=== PATIENT | female | born 1945 | race African-American/Black ===

== ENCOUNTER 2016-10-14 12:53 | Emergency (ER) | payer OTHER ==
[2016-10-14 13:10] VITALS: BP 144/73; PULSE 64; TEMP 98; BMI 35.6
--- NOTE | 2016-10-14 14:04 | PDOC ---
History of Present Illness - General History Source: Patient Exam Limitations: No Limitations - History of Present Illness Initial Comments: 10/14/16 14:07 The patient is a 70 year old female who presents to the ED with s/p fall several days ago. Patient reports she was waking from a carpet floor onto a hardwood floor when her sneaker got caught and she fell forward. She states her left knee hit the hard floor first, followed by her arms. She reports bilateral arm soreness secondary to fall but states her right arm progressively worsened last night and she developed pain. Patient reports right arm pain at the top of her right arm radiating downward. She states she is unable to lift her right arm over her head. Patient also reports pain to her left knee. She state she took Aleve with slight relief of present symptoms. Denies focal numbness, weakness, or tingling. Denies loss of consciousness or head injury. Denies any other symptoms. Past medical history: hypertension, hyperlipidemia Past surgical hx: Right sided knee replacement. <Sreedhar Garcia - Last Filed: 10/14/16 14:35> <Mary Vital - Last Filed: 10/14/16 15:40> - General Chief Complaint: Pain Stated Complaint: PAIN Time Seen by Provider: 10/14/16 13:23 Past History <Sreedhar Garcia - Last Filed: 10/14/16 14:35> - Past Medical History HTN: Yes Hypercholesterolemia: Yes Suicide Attempt (Hx): No - Surgical History Orthopedic Surgery: Yes (rt knee sx) Other Surgical History: 10/14/16 14:25 - Psycho/Social/Smoking Cessation Hx Anxiety: No Suicidal Ideation: No Smoking History: Former smoker Have you smoked in the past 12 months: No If you are a former smoker, when did you quit?: 16yrs Information on smoking cessation initiated: No Hx Alcohol Use: No Drug/Substance Use Hx: No Substance Use Type: None Patient Lives Alone: No <Mary Vital - Last Filed: 10/14/16 15:40> - Past Medical History Allergies/Adverse Reactions: Allergies Allergy/AdvReac Type Severity Reaction Status Date / Time lisinopril Allergy Severe Verified 10/14/16 13:09 Home Medications: Ambulatory Orders Metoprolol Tartrate 75 mg PO DAILY 10/23/14 Oxycodone HCl/Acetaminophen [Percocet 5/325 -] 1 tab PO Q4H #20 tablet 10/23/14 Rosuvastatin Calcium [Crestor] 20 mg PO DAILY 10/23/14 Trauma Specific PMHX - Complaint Specific PMHX Back Injury: No <Mary Vital - Last Filed: 10/14/16 15:40> Review of Systems - Review of Systems Musculoskeletal: Yes: See HPI, Other (arm pain, knee pain s/p fall ) All Other Systems: Reviewed and Negative <Sreedhar Garcia - Last Filed: 10/14/16 14:35> - Review of Systems Able to Perform ROS?: No Is the patient limited Albanian proficient: No Constitutional: No: Symptoms Reported Musculoskeletal: Yes: Joint Pain (rt shoulder and left knee) Integumentary: No: Symptoms Reported Neurological: No: Numbness, Paresthesia, Weakness <Mary Vital - Last Filed: 10/14/16 15:40> *Physical Exam - Vital Signs Last Vital Signs Temp Pulse Resp BP Pulse Ox 98 F 64 16 144/73 99 10/14/16 13:00 10/14/16 13:00 10/14/16 13:00 10/14/16 13:00 10/14/16 13:00 - Physical Exam Comments: 10/14/16 14:08 GENERAL: Well-appearing, well-nourished. No apparent distress. HEENT: no scapular tenderness. Normocephalic, atraumatic. PERRL, EOM intact. CARDIOVASCULAR: Normal S1, S2. Regular rate and rhythm. PULMONARY: Clear to auscultation bilaterally. ABDOMEN: Soft, non-distended, non-tender. EXTREMITIES: + No meniscus or lateral ligament tenderness, mild crepitus upon movement. tenderness to anterior proximal aspect of left patella , no effusion edema or erythema. no sensory periosteal distal of injury. Positive pedal pulses. Normal ROM in all four extremities. No gross deformities. MUSCULOSKELETAL: No limited ROM or tenderness to pelvis or hip. No spinal midline tenderness. SKIN: Warm, dry. No rash NEUROLOGICAL: No focal neurological deficits. Normal gait. <Sreedhar Garcia - Last Filed: 10/14/16 14:35> - Vital Signs Last Vital Signs Temp Pulse Resp BP Pulse Ox 98 F 64 16 144/73 99 10/14/16 13:00 10/14/16 13:00 10/14/16 13:00 10/14/16 13:00 10/14/16 13:00 - Physical Exam General Appearance: Yes: Nourished, Appropriately Dressed. No: Apparent Distress Neck: positive: Supple. negative: Tender, Decreased range of motion Vascular Pulses: Doralis-Pedis (L): 2+ Musculoskeletal: negative: Vertebral Tenderness Extremity: positive: Normal Capillary Refill, Normal Inspection, Tender (over ac joint). negative: Normal Range of Motion (unable to perform lateral raise of the right upper extremity greater than 90 degrees), Swelling, Erythema Integumentary: positive: Normal Color, Warm, Moist Neurologic: positive: Motor Strength 5/5 (ambulatory, 5+ shoulder shrug and straight leg raise) <Mary Vital - Last Filed: 10/14/16 15:40> Medical Decision Making - Medical Decision Making 10/14/16 14:28 Patient was reviewed by me with dictation performed by the medical conceirge. Patient status post mechanical fall and presents to the ED with complaints of left knee and right shoulder pain today. Patient on exam had point tenderness to the proximal aspect anteriorly of left patella and right ac joint. Patient concerning for patellar fracture versus contusion. Patient also ordered for x- ray of the knee and shoulder. Patient offered analgesics but refused this time. 10/14/16 15:37 x-ray of the shoulder shows mild osteopenia and degenerative changes of the ac joint including a small inferior medial acromial spur. the left knee shows osteopenia and lateral spurring. there is a mild lateral subluxation of the patella. patient will be given an Thanh wrap and told to follow -up with her orthopedist at [facility]. <Mary Vital - Last Filed: 10/14/16 15:40> *DC/Admit/Observation/Transfer - Attestations Scribe Attestion: 10/14/16 14:08 Documentation prepared by Sreedhar Garcia, acting as hospitalist medical director for Emergency Dept,Physician, <Sreedhar Garcia - Last Filed: 10/14/16 14:35> <Mary Vital - Last Filed: 10/14/16 15:40> Diagnosis at time of Disposition: Subluxation of left patella Qualifiers: Encounter type: initial encounter Qualified Code(s): S83.002A - Unspecified subluxation of left patella, initial encounter - Discharge Dispostion Disposition: HOME Condition at time of disposition: Good - Referrals Referrals: STAFF,NOT ON [Primary Care Provider] - - Patient Instructions Printed Discharge Instructions: DI for Knee Pain Additional Instructions: Please use Thanh wrap during the day and remove at night. You may take Tylenol for discomfort. I do want to follow-up with her orthopedist.
== END 2016-10-14 15:45 | disposition home or self-care (01) ==
LOC: JER 12:53 → JERFT 12:53
DX: S83.002A Unspecified subluxation of left patella, initial encounter (principal); W01.0XXA Fall on same level from slipping, tripping and stumbling without subsequent striking against object, initial encounter; Y93.01 Activity, walking, marching and hiking; Y92.038 Other place in apartment as the place of occurrence of the external cause; Y99.8 Other external cause status; M85.862 Other specified disorders of bone density and structure, left lower leg; M85.811 Other specified disorders of bone density and structure, right shoulder
CPT/HCPCS: 73030-TC-RT; 73562-TC-LT; 99281-25

== ENCOUNTER 2019-01-11 21:19 | Emergency (ER) | payer OTHER ==
--- NOTE | 2019-01-11 21:36 | PDOC ---
Rapid Medical Evaluation Medical Evaluation: Allergies Allergy/AdvReac Type Severity Reaction Status Date / Time lisinopril Allergy Severe Verified 10/14/16 13:09 01/11/19 21:33 I have performed a brief in-person evaluation of this patient. The patient presents with a chief complaint of: Lower back pain radiating to groin and thighs x 6 days. Hard to ambulate 2/2 pain. H/o spinal stenosis, chronic LBP, arthritis, RA, R TKR, afib on AC, HTN, HLD. Took her muscle relaxant this am w/ no relief. No acute sensory changes and no acute sxs, n/v /f/c Pertinent physical exam findings: Stable and in NAD, sitting in W/C I have ordered the following:nothing The patient will proceed to the ED for further evaluation Discharge Disposition - Diagnosis Low back pain Qualifiers: Chronicity: chronic Back pain laterality: unspecified Sciatica presence: without sciatica Qualified Code(s): M54.5 - Low back pain - Referrals - Patient Instructions - Post Discharge Activity
[2019-01-11 21:43] VITALS: TEMP 98.1; BMI 41.5
[2019-01-11] MEDS ORDERED: LIDOCAINE PATCH REMOVAL MC SCH (22:00)
[2019-01-11] MEDS ORDERED: LIDOCAINE 5% TOPICAL PATCH TP ONE (23:20)
[2019-01-11] MEDS ORDERED: ACETAMINOPHEN 500 MG TABLET (FP) PO ONE (23:20)
--- NOTE | 2019-01-11 23:26 | PDOC ---
Documentation entered by Rosario Machuca SCRIBE, acting as scribe for Francisca Abebe MD. Francisca Abebe MD: This documentation has been prepared by the Brigette ortiz Adrianna, SCRIBE, under my direction and personally reviewed by me in its entirety. I confirm that the documentation accurately reflects all work, treatment, procedures, and medical decision making performed by me. Attending Attestation - Resident Resident Name: Edgardo Corral - ED Attending Attestation I have performed the following: I have examined & evaluated the patient, The case was reviewed & discussed with the resident, I agree w/resident's findings & plan, Exceptions are as noted - HPI HPI: The patient is a 73 year old female, with a significant PMH of chronic low back pain, spinal stenosis, RA, Afib (on Eliquis), HTN, and HLD, who presents to the ED for evaluation of low back pain for one week. Patient endorses right-sided low back pain that radiates to her right thigh and right groin subsequently to her trying new exercises. She reports some relief with muscle relaxer, but denies any trauma to the areas. Allergies: Lisinopril, aspirin, hydrochlorotiazide Surgical History: None reported Social History: Denies EtOH, tobacco, or illicit drug use PCP: Dr. Conway - Physicial Exam PE: 01/12/19 00:36 Well-nourished well-developed 73-year-old female with complaint of right-sided low back pain radiating towards her groin down her her thigh Head normocephalic atraumatic Neck supple Lungs are clear to auscultation bilaterally CVS regular rate and rhythm S1-S2 Abdomen soft Skin warm and dry Extremities motor strength 5 out of 5 bilaterally, sensation intact No saddle anesthesia No numbness or tingling in her extremities Neuro alert and oriented x3, ambulatory, deep tendon reflexes +2. Toes are downgoing, no clonus - Medical Decision Making 01/12/19 00:38 Patient given pain medicines and will follow-up with her primary physician
--- NOTE | 2019-01-11 23:44 | PDOC ---
History of Present Illness - General Chief Complaint: Back Pain Stated Complaint: PAIN Time Seen by Provider: 01/11/19 21:33 History Source: Patient, Family (Daughters present at bedside.) Exam Limitations: No Limitations - History of Present Illness Initial Comments: HPI: 73 y/o female presenting to [facility] ER complaining of right lower back pain with radiation to the top of the right thigh and into right groin for the past week. Started after trying new exercises. Pt has a h/o of chronic pain in the area and a h/o of lower back spinal stenosis. Attempted relief w/ prescribe muscle relaxant earlier today with minimal relief. Denies urinary retention, bowel incontinence, saddle anesthesia, or numbness/weakness in lower extremities. Denies trauma to the area. Medical Hx: H/o spinal stenosis w/ MRI 1 year ago and surgery suggested by neurosurgeon - Chronic LBP - Rheumatoid arthritis - R TKR - Afib on Eliquis - HTN - HLD Review of Systems: In addition to that documented in the HPI above, the additional ROS was obtained : Constitutional- Denies fevers or diaphoresis Head- Denies vision changes ENMT- Denies sore throat CV- Denies chest pain Resp- Denies SOB GI- Denies vomiting or diarrhea - Denies painful urination MSK- Denies recent trauma Skin- Denies new rashes Neuro- Denies new numbness or tingling or weakness Endocrine- Denies polyuria Heme- Denies bleeding or bruising Physical Examination: Constitutional- Well-developed, well-nourished adult female in no acute distress but mild obvious discomfort. Found semi-fowlers on hospital bed. Answered all questions appropriately and completely. Head- Normocephalic. No obvious external signs of trauma. Cardiovascular / Chest- Irregularly irregular rate and rhythm. No murmur, rubs, clicks, or gallops. Peripheral pulses- radial pulses full. Respiratory- Breathing unlabored. Equal chest rise and fall. Clear to auscultation bilaterally. No stridor, no wheezing, no rhonchi. Gastrointestinal- abdomen is soft, non-tender, non-distended. Neuro- Alert and oriented x4. Moving all four extremities spontaneously. Sensation to all four extremities intact. Proximal and distal strength 5/5. Cold Type Artist strength 5/5 - equal and symmetric. Plantar flexion and dorsiflexion 5/5. No nuchal rigidity. Straight leg test negative; no pain with leg above 90 degrees. MSK: Diffuse tenderness to right gluteal region. No midline lumbar spinal tenderness. Extremity is warm and well perfused. Skin- Warm, dry, and intact. - No R or L CVA tenderness. Psych- Affect- appropriate. Mood- normal. Speech was non-labored, non- pressured. MDM: *Reviewed vital signs, nursing notes, and prior visit documentation (if available). 73 y/o female presenting with worsening right lower back pain for the past week in setting of known spinal stenosis and chronic pain. No red flags identified on history. Afebrile. Vitals unremarkable for hypotension or tachycardia. Physical exam as described above. Ordered Percocet and Lidoderm patch for symptom relief. [employer] reviewed. No entries for [facility]. Discussed physical exam findings with pt and daughters. Answered all questions. Provided return precautions. Pt and daughters expressed verbal understanding and agreement with plan to discharge home with outpatient follow up. Prescribed short course Percocet. Encouraged f/u with neurosurgeon. Provided referral. Edgardo Corral M.D., PGY2 Emergency Medicine Resident 01/12/19 00:27 Past History - Past Medical History Allergies/Adverse Reactions: Allergies Allergy/AdvReac Type Severity Reaction Status Date / Time lisinopril Allergy Severe Verified 10/14/16 13:09 aspirin Allergy Verified 01/11/19 21:36 hydrochlorothiazide Allergy Verified 01/11/19 21:36 Home Medications: Ambulatory Orders Metoprolol Tartrate 75 mg PO DAILY 10/23/14 Oxycodone HCl/Acetaminophen [Percocet 5/325 -] 1 tab PO Q4H #20 tablet 10/23/14 Rosuvastatin Calcium [Crestor] 20 mg PO DAILY 10/23/14 Oxycodone HCl/Acetaminophen [Percocet 5-325 mg Tablet] 1 tab PO Q4H PRN #4 tablet MDD 2 01/12/19 COPD: No HTN: Yes Hypercholesterolemia: Yes Other medical history: Reumatoid arthritis - Surgical History Orthopedic Surgery: Yes (rt knee sx) - Psycho Social/Smoking Cessation Hx Smoking History: Never smoked Have you smoked in the past 12 months: No If you are a former smoker, when did you quit?: 16yrs Hx Alcohol Use: No Drug/Substance Use Hx: No Substance Use Type: None *Physical Exam - Vital Signs Last Vital Signs Temp Pulse Resp BP Pulse Ox 98.1 F 56 L 20 140/68 100 01/11/19 21:36 01/11/19 21:36 01/11/19 21:36 01/11/19 21:36 01/11/19 21:36 Discharge - Discharge Information Problems reviewed: Yes Clinical Impression/Diagnosis: Low back pain Qualifiers: Chronicity: chronic Back pain laterality: unspecified Sciatica presence: without sciatica Qualified Code(s): M54.5 - Low back pain Condition: Good Disposition: HOME - Admission No - Additional Discharge Information Prescriptions: Oxycodone HCl/Acetaminophen [Percocet 5-325 mg Tablet] 1 tab PO Q4H PRN #4 tablet MDD 2 PRN Reason: Back Pain - Follow up/Referral Referrals: Gino Conway [Primary Care Provider] - Yash Swenson MD, FAANS [Staff Physician] - - Patient Discharge Instructions Patient Printed Discharge Instructions: DI for Low Back Pain Additional Instructions: You were seen today for right lower back pain for the past week. Your pain is likely worsening of your chronic pain. I have sent a prescription for Percocet to your pharmacy. Take as directed on the package insert. Do not exceed the recommended dosage. Do not use this medication while driving or using heavy machinery as it may cause drowsiness. Follow up with your primary care doctor within the next 2-3 days. You will need to call to make an appointment. The number is included in this packet. You can also follow up with a neurosurgeon. I have entered a referral for you to see Dr. Swenson. You will need to call to make an appointment. The number is included in this packet. Go to the nearest emergency department if your condition worsens or you feel like you need additional emergency evaluation. Print Language: ESTONIAN - Post Discharge Activity
[2019-01-11] MEDS ORDERED: ACETAMINOPHEN 325 MG TABLET (FP) ONE (23:58)
[2019-01-11] MEDS ORDERED: LIDOCAINE 5% TOPICAL PATCH ONE (23:59)
[2019-01-12 01:45] VITALS: BP 133/63; PULSE 58
== END 2019-01-12 00:27 | disposition home or self-care (01) ==
LOC: JER 21:19
DX: M54.5 Low back pain (principal); G89.29 Other chronic pain; M48.00 Spinal stenosis, site unspecified; I48.91 Unspecified atrial fibrillation; Z79.01 Long term (current) use of anticoagulants; I10 Essential (primary) hypertension; E78.5 Hyperlipidemia, unspecified; M06.9 Rheumatoid arthritis, unspecified; Z88.8 Allergy status to other drugs, medicaments and biological substances; Z88.6 Allergy status to analgesic agent
CPT/HCPCS: 99281-25

== ENCOUNTER 2021-03-29 16:55 | Emergency (ER) | payer OTHER ==
[2021-03-29 17:16] VITALS: PULSE 69; TEMP 98.8; BMI 35.0
[2021-03-29] MEDS ORDERED: DIPHTH,PERTUSS(ACELL),TET 0.5 ML DISP.SYRIN IM ONE ×2 (17:31→17:33)
[2021-03-29] MEDS ORDERED: SULFAMETHOXAZOLE/TRIMETHOPRIM 800MG/160MG D.S. TABLET PO ONE (18:57)
[2021-03-29] MEDS ORDERED: SULFAMETHOXAZOLE/TRIMETHOPRIM 800MG/160MG D.S. TABLET ONE (19:33)
[2021-03-29 19:46] VITALS: BP 145/69
== END 2021-03-29 19:40 | disposition home or self-care (01) ==
LOC: FER 16:55
PROC: 3E0234Z Introduction of Serum, Toxoid and Vaccine into Muscle, Percutaneous Approach (ICD-10-PCS; principal; 2021-03-29)
DX: M25.561 Pain in right knee (principal)
CPT/HCPCS: 73562-TC-LT-FY; 73562-TC-RT-FY; 73590-TC-RT-FY; 90471; 90715; 99284-25

== ENCOUNTER 2021-04-08 18:51 | Emergency (ER) | payer OTHER ==
[2021-04-08 19:09] VITALS: BP 159/74; PULSE 77; TEMP 99.1; BMI 34.7
== END 2021-04-08 21:49 | disposition home or self-care (01) ==
LOC: FER 18:51 → SUPCPDRO 18:51 → FER 21:49
DX: S81.011A Laceration without foreign body, right knee, initial encounter (principal); T45.515A Adverse effect of anticoagulants, initial encounter; Y99.9 Unspecified external cause status
CPT/HCPCS: 93971-TC; 99284-25

== ENCOUNTER 2021-05-07 15:08 | Inpatient (IN) | payer OTHER ==
[2021-05-07] MEDS ORDERED: CEFTRIAXONE 1,000 MG in DEXTROSE 5%-WATER - 50 ML IVPB ONE (15:53)
[2021-05-07] MEDS ORDERED: SODIUM CHLORIDE 1,000 ML IV STA (15:53)
[2021-05-07] MEDS ORDERED: ACETAMINOPHEN 1000 MG/100 ML BAG IVPB ONE (16:39)
[2021-05-07] MEDS ORDERED: cefTRIAXone SODIUM 1 GM VIAL ONE (16:41)
[2021-05-07] MEDS ORDERED: ACETAMINOPHEN INJECTION 100 ML IVPB ONE (16:42)
[2021-05-07 16:51] LABS: ALBUMIN 2.7 g/dl (3.4-5.0); BILIRUBIN,TOTAL 0.9 mg/dl (0.2-1)
[2021-05-07 17:10] LABS: MAGNESIUM 1.9 mg/dL (1.8-2.4)
[2021-05-07 18:05] LABS: ACTIVATED PTT 46.8 SECONDS (25.2-36.5); INR 2.22 (0.83-1.09); PROTHROMBIN TIME (PATIENT) 25.7 SEC (9.7-13.0)
[2021-05-07] MEDS: KCL 10 MEQ IVPB 10 MEQ/100 ML INFUS.BAG IVPB SCH ×2 (18:20→19:42)
[2021-05-07] MEDS ORDERED: AZITHROMYCIN IVPB 500 MG in DEXTROSE 5%-WATER - 250 ML IVPB ONE (18:31)
[2021-05-07] MEDS ORDERED: POTASSIUM CHLORIDE ORAL LIQUID 20 MEQ/15 ML PO ONE (18:40)
[2021-05-07] MEDS ORDERED: POTASSIUM CHLORIDE TABS 20 MEQ TABLET.ER (FP) PO ONE ×3 (18:41→18:54)
[2021-05-07 18:43] LABS: HEMATOCRIT 36.7 % (32.4-45.2); HEMOGLOBIN 12.1 GM/dL (10.7-15.3); MCH 27.3 pg (25.7-33.7); MCHC 32.9 g/dl (32.0-36.0); MEAN PLT VOLUME 9.7 fl (7.5-11.1); PLATELET COUNT 182 10^3/uL (134-434); RBC 4.42 M/mm3 (3.60-5.2); RDW 16.6 % (11.6-15.6); WHITE BLOOD COUNT 11.6 K/mm3 (4.0-10.0)
[2021-05-07] MEDS ORDERED: AZITHROMYCIN 500 MG VIAL IVPB ONE (18:43)
[2021-05-07 18:52] LABS: VENOUS BASE EXCESS -1.1 mmol/L (-2-2); VENOUS PCO2 33.3 mmHg (38-52); VENOUS PH 7.443 (7.310-7.410)
[2021-05-07 19:28] LABS: ANISOCYTOSIS 0; MACROCYTOSIS 0; PLATELET ESTIMATE NORMAL
[2021-05-07] MEDS ORDERED: ACETAMINOPHEN 325 MG TABLET (FP) PO PRN (22:16)
[2021-05-07] MEDS ORDERED: POLYETHYLENE GLYCOL (HEALTHYLAX) 3350 17 GM PACKET PO PRN (22:16)
[2021-05-07] MEDS: APIXABAN 2.5 MG TABLET PO SCH (23:29)
[2021-05-08] MEDS ORDERED: SODIUM CHLORIDE 500 ML IV STA (00:02)
[2021-05-08] MEDS ORDERED: guaiFENesin 200 MG/10 ML 10 ML UNIT-DOSE CUPS PO PRN (00:04)
[2021-05-08] MEDS ORDERED: MELATONIN 1 MG TABLET PO PRN (00:05)
[2021-05-08] MEDS ORDERED: DEXTROSE 5%-NORMAL SALINE 1,000 ML IV SCH ×2 (00:15→10:21)
[2021-05-08 01:38] LABS: EPI CELLS 13 /uL (0-25.1); HYALINE CASTS 1 /uL (0-3.1); URINE APPEARANCE CLEAR; URINE BACTERIA 1 /uL (0-1359); URINE BILIRUBIN NEGATIVE (NEGATIVE); URINE COLOR YELLOW; URINE GLUCOSE (UA) NEGATIVE (NEGATIVE); URINE KETONE NEGATIVE (NEGATIVE); URINE LEUK ESTERASE NEGATIVE (NEGATIVE); URINE NITRITE NEGATIVE (NEGATIVE); URINE PROTEIN 1+ (NEGATIVE); URINE UROBILINOGEN 0.2 mg/dL (0.2-1.0); URINE WBC 19 /uL (0-25.8)
[2021-05-08 02:14] LABS: URINE RBC 2 /uL (0-23.9)
[2021-05-08] MEDS ORDERED: TRIMETHOBENZAMIDE HCL 300 MG CAPSULE PO PRN (06:39)
[2021-05-08 08:04] LABS: ALBUMIN 2.2 g/dl (3.4-5.0); BILIRUBIN,TOTAL 0.5 mg/dl (0.2-1); CALCIUM 7.8 mg/dl (8.5-10)
[2021-05-08] MEDS ORDERED: cefTRIAXone SODIUM 1 GM VIAL ONE (09:23)
[2021-05-08] MEDS ORDERED: DEXTROSE 5%-WATER - 50 ML IVPB ONE (09:23)
[2021-05-08 09:25] LABS: BASO % 0.1 % (0-2.0); EOS % 0.1 % (0-4.5); HEMATOCRIT 35.4 % (32.4-45.2); HEMOGLOBIN 11.7 GM/dL (10.7-15.3); LYMPH % 2.4 % (8-40); MCH 27.5 pg (25.7-33.7); MCHC 32.9 g/dl (32.0-36.0); MEAN CELL VOLUME 83.5 fl (80-96); MEAN PLT VOLUME 9.5 fl (7.5-11.1); MONO % 8.1 % (3.8-10.2); NEUT % 89.3 % (42.8-82.8); PLATELET COUNT 190 10^3/uL (134-434); RBC 4.24 M/mm3 (3.60-5.2); RDW 17.6 % (11.6-15.6)
[2021-05-08] MEDS: CEFTRIAXONE 1 GM in DEXTROSE 5%-WATER - 50 ML IVPB SCH (09:31)
[2021-05-08] MEDS: POTASSIUM CHLORIDE TABS 20 MEQ TABLET.ER (FP) PO SCH ×2 (09:31→15:00)
[2021-05-08] MEDS: APIXABAN 2.5 MG TABLET PO SCH ×2 (09:31→21:53)
[2021-05-08] MEDS ORDERED: FUROSEMIDE 40 MG/4 ML INJECTABLE VIAL IVPUSH ONE (11:08)
[2021-05-08] MEDS ORDERED: AZITHROMYCIN IVPB 500 MG/250 ML BAG IVPB SCH (20:00)
[2021-05-08] MEDS: ROSUVASTATIN CA 20 MG TABLET PO SCH (21:52)
[2021-05-08] MEDS: metoPROLOL SUCCINATE 25 MG TAB.SR.24H (FP) PO SCH (21:53)
[2021-05-09 07:55] LABS: ALBUMIN 2.1 g/dl (3.4-5.0); BILIRUBIN,TOTAL 0.4 mg/dl (0.2-1); CALCIUM 8.3 mg/dl (8.5-10); CREATININE 1.9 mg/dl (0.55-1.3); MAGNESIUM 1.8 mg/dL (1.8-2.4); TOT PROT 4.8 g/dl (6.4-8.2)
[2021-05-09 08:28] LABS: BASO % 0.2 % (0-2.0); EOS % 1.3 % (0-4.5); HEMATOCRIT 34.7 % (32.4-45.2); HEMOGLOBIN 11.2 GM/dL (10.7-15.3); LYMPH % 5.3 % (8-40); MCH 26.6 pg (25.7-33.7); MCHC 32.3 g/dl (32.0-36.0); MEAN CELL VOLUME 82.4 fl (80-96); MEAN PLT VOLUME 9.7 fl (7.5-11.1); MONO % 12.2 % (3.8-10.2); PLATELET COUNT 221 10^3/uL (134-434); RBC 4.21 M/mm3 (3.60-5.2); WHITE BLOOD COUNT 8.5 K/mm3 (4.0-10.0)
[2021-05-09] MEDS ORDERED: D5-1/2NS+40 MEQ KCL - 40 MEQ/1,000 ML INFUS.BAG IV SCH (09:00)
[2021-05-09] MEDS ORDERED: POTASSIUM CHLORIDE TABS 20 MEQ TABLET.ER (FP) PO SCH (09:00)
[2021-05-09 09:08] LABS: SARS-CoV-2 NAA Not Detected (Not Detected)
[2021-05-09] MEDS ORDERED: cefTRIAXone SODIUM 1 GM VIAL ONE (09:54)
[2021-05-09] MEDS ORDERED: DEXTROSE 5%-WATER - 50 ML IVPB ONE (09:55)
[2021-05-09] MEDS ORDERED: POTASSIUM CHLORIDE ORAL LIQUID 20 MEQ/15 ML PO SCH (10:00)
[2021-05-09] MEDS: POTASSIUM CHLORIDE ORAL LIQUID 20 MEQ/15 ML PO SCH ×2 (10:07→16:26)
[2021-05-09] MEDS: APIXABAN 2.5 MG TABLET PO SCH ×2 (10:07→21:07)
[2021-05-09] MEDS: CEFTRIAXONE 1 GM in DEXTROSE 5%-WATER - 50 ML IVPB SCH (10:08)
[2021-05-09 13:58] LABS: EPITHELIAL CELLS MANY /hpf
[2021-05-09 15:03] LABS: ALBUMIN 2.4 g/dl (3.4-5.0); BILIRUBIN,TOTAL 0.4 mg/dl (0.2-1); CALCIUM 8.5 mg/dl (8.5-10); CREATININE 1.9 mg/dl (0.55-1.3); MAGNESIUM 1.8 mg/dL (1.8-2.4); TOT PROT 5.5 g/dl (6.4-8.2)
[2021-05-09 17:18] VITALS: BMI 35.3
[2021-05-09] MEDS: AZITHROMYCIN IVPB 500 MG/250 ML BAG IVPB SCH (20:57)
[2021-05-09] MEDS: ROSUVASTATIN CA 20 MG TABLET PO SCH (21:06)
[2021-05-09] MEDS: metoPROLOL SUCCINATE 25 MG TAB.SR.24H (FP) PO SCH (21:08)
[2021-05-09] MEDS: ALBUTEROL SO4 HFA INHALER IH PRN (21:14)
[2021-05-10] MEDS: ALBUTEROL SO4 HFA INHALER IH PRN ×2 (06:48→21:36)
[2021-05-10 09:05] LABS: ALBUMIN 2.4 g/dl (3.4-5.0); BILIRUBIN,TOTAL 0.4 mg/dl (0.2-1); CALCIUM 8.6 mg/dl (8.5-10); CREATININE 1.7 mg/dl (0.55-1.3); MAGNESIUM 1.7 mg/dL (1.8-2.4); TOT PROT 5.9 g/dl (6.4-8.2)
[2021-05-10] MEDS ORDERED: DEXTROSE 5%-WATER - 50 ML IVPB ONE (09:38)
[2021-05-10] MEDS ORDERED: cefTRIAXone SODIUM 1 GM VIAL ONE (09:38)
[2021-05-10] MEDS: APIXABAN 2.5 MG TABLET PO SCH ×2 (09:40→21:30)
[2021-05-10] MEDS: CEFTRIAXONE 1 GM in DEXTROSE 5%-WATER - 50 ML IVPB SCH (09:40)
[2021-05-10 09:55] LABS: BASO % 0.4 % (0-2.0); EOS % 2.6 % (0-4.5); HEMATOCRIT 36.1 % (32.4-45.2); LYMPH % 9.8 % (8-40); MCH 27.8 pg (25.7-33.7); MCHC 33.2 g/dl (32.0-36.0); MEAN CELL VOLUME 83.7 fl (80-96); MEAN PLT VOLUME 10.1 fl (7.5-11.1); MONO % 10.6 % (3.8-10.2); NEUT % 76.6 % (42.8-82.8); PLATELET COUNT 272 10^3/uL (134-434); RBC 4.32 M/mm3 (3.60-5.2); RDW 17.6 % (11.6-15.6); WHITE BLOOD COUNT 8.5 K/mm3 (4.0-10.0)
[2021-05-10] MEDS: AZITHROMYCIN IVPB 500 MG/250 ML BAG IVPB SCH (21:29)
[2021-05-10] MEDS: ROSUVASTATIN CA 20 MG TABLET PO SCH (21:30)
[2021-05-10] MEDS: metoPROLOL SUCCINATE 25 MG TAB.SR.24H (FP) PO SCH (21:30)
[2021-05-11] MEDS ORDERED: DEXTROSE 5%-WATER - 50 ML IVPB ONE (09:00)
[2021-05-11] MEDS ORDERED: cefTRIAXone SODIUM 1 GM VIAL ONE (09:00)
[2021-05-11] MEDS: CEFTRIAXONE 1 GM in DEXTROSE 5%-WATER - 50 ML IVPB SCH (09:04)
[2021-05-11] MEDS: APIXABAN 2.5 MG TABLET PO SCH (09:04)
[2021-05-11 09:10] VITALS: BP 130/66; PULSE 95; TEMP 98.1
== END 2021-05-11 12:05 | disposition home or self-care (01) | DRG 871 ==
LOC: FER 15:08 → FM/S 20:44
PROVIDERS: ADMIT Internal Medicine; ATTEND Nurse Practitioner Family
DX: A41.89 Other specified sepsis (principal); J18.9 Pneumonia, unspecified organism; N17.9 Acute kidney failure, unspecified; I24.8 Other forms of acute ischemic heart disease; M62.82 Rhabdomyolysis; I10 Essential (primary) hypertension; I48.0 Paroxysmal atrial fibrillation; E78.5 Hyperlipidemia, unspecified; M06.9 Rheumatoid arthritis, unspecified; R50.9 Fever, unspecified; E11.9 Type 2 diabetes mellitus without complications; E87.6 Hypokalemia; R00.0 Tachycardia, unspecified; D72.829 Elevated white blood cell count, unspecified; R82.81 Pyuria; R80.9 Proteinuria, unspecified
CPT/HCPCS: 36415; 71045-TC-FY; 71250-TC; 74176-TC; 80053; 81003; 81015; 82550; 82553; 82570; 82803; 83605; 83735; 83880; 84156; 84484; 85025; 85610; 85730; 86850; 86900; 86901; 87040; 87086; 87324; 87426; 87449; 87804; 87899; 93005; 93010; 93306-TC; 94761; 97116-GP; 97161-GP; 99291; C9803; U0003; U0005

== ENCOUNTER 2023-04-27 14:43 | Emergency (ER) | payer OTHER ==
[2023-04-27 15:16] VITALS: BP 139/72; PULSE 76; RESP 20; TEMP 98; BMI 32.9
[2023-04-27 17:29] LABS: HEMATOCRIT 44.8 % (32.4-45.2); HEMOGLOBIN 14.5 G/dL (10.7-15.3); MCH 27.8 pg (25.7-33.7); MCHC 32.3 g/dl (32.0-36.0); MEAN CELL VOLUME 86.2 fl (80-96); MEAN PLT VOLUME 10.8 fl (7.5-11.1); PLATELET COUNT 212.7 10^3/uL (134-434); RDW 15.8 % (11.6-15.6)
[2023-04-27 17:33] LABS: INR 1.3 (0.83-1.09)
[2023-04-27 17:36] LABS: ACTIVATED PTT 42.4 SECONDS (25.2-36.5)
[2023-04-27 17:44] LABS: BILIRUBIN,TOTAL 1.2 mg/dl (0.2-1); CALCIUM 9.5 mg/dl (8.5-10.1); CREATININE 1.1 mg/dl (0.6-1.3); TOT PROT 6.5 g/dl (6.4-8.2)
[2023-04-27 17:46] LABS: POTASSIUM 5.7 mmol/L (3.5-5.1)
[2023-04-27 18:32] LABS: PLATELET ESTIMATE ADEQUATE
[2023-04-27 19:28] LABS: POTASSIUM 4.3 mmol/L (3.5-5.1)
[2023-04-27 20:20] LABS: CALCIUM 9.5 mg/dl (8.5-10.1); CREATININE 1.1 mg/dl (0.6-1.3); POTASSIUM 4.4 mmol/L (3.5-5.1)
== END 2023-04-27 20:28 | disposition home or self-care (01) ==
LOC: FER 14:43
DX: S46.912A Strain of unspecified muscle, fascia and tendon at shoulder and upper arm level, left arm, initial encounter (principal); S80.12XA Contusion of left lower leg, initial encounter; W01.0XXA Fall on same level from slipping, tripping and stumbling without subsequent striking against object, initial encounter; Y92.828 Other wilderness area as the place of occurrence of the external cause
CPT/HCPCS: 36415; 70450-TC; 73030-TC-LT-FY; 80048; 80053; 80061; 81003; 82550; 83036; 84132; 84484; 85025; 85610; 85730; 93005; 93970-TC; 99285-25

== ENCOUNTER 2023-05-26 15:20 | Inpatient (IN) | payer OTHER ==
[2023-05-26] MEDS ORDERED: ACETAMINOPHEN INJECTION 100 ML IVPB ONE (18:54)
[2023-05-26 18:58] LABS: EOS % 1.4 % (0-4.5); HEMATOCRIT 42.6 % (32.4-45.2); HEMOGLOBIN 13.6 GM/dL (10.7-15.3); LYMPH % 16.7 % (8-40); MCH 26.8 pg (25.7-33.7); MEAN PLT VOLUME 9.4 fl (7.5-11.1); MONO % 6.9 % (3.8-10.2); PLATELET COUNT 314 10^3/uL (134-434); RBC 5.07 M/mm3 (3.60-5.2); RDW 15.7 % (11.6-15.6); WHITE BLOOD COUNT 9.1 K/mm3 (4.0-10.0)
[2023-05-26] MEDS: ACETAMINOPHEN 1000 MG/100 ML BAG IVPB ONE (19:02)
[2023-05-26 19:03] LABS: INR 1.43 (0.83-1.09); PROTHROMBIN TIME (PATIENT) 16.5 SEC (9.7-13.0)
[2023-05-26 19:06] LABS: ACTIVATED PTT 34.6 SECONDS (25.2-36.5)
[2023-05-26] MEDS ORDERED: VANCOMYCIN 1 GRAM (PRE-DOCKED) 1,000 MG/250 ML BAG IVPB ONE (19:15)
[2023-05-26] MEDS ORDERED: MEROPENEM 1 GM VIAL (RESTRICTED TO ID) IVPB ONE (19:15)
[2023-05-26 19:19] LABS: ALBUMIN 3.4 g/dl (3.4-5.0); CALCIUM 9.8 mg/dL (8.5-10.1)
[2023-05-26 19:20] LABS: BLOOD UREA NITROGEN 49.5 mg/dL (7-18)
[2023-05-26 19:23] LABS: CREATININE 1.1 mg/dL (0.55-1.3)
[2023-05-26 19:24] LABS: BILIRUBIN,TOTAL 0.7 mg/dL (0.2-1); TOT PROT 6.9 g/dl (6.4-8.2)
[2023-05-26] MEDS: MEROPENEM 1 GM in DEXTROSE 5%-WATER 100 ML IVPB ONE (19:28)
[2023-05-26] MEDS: VANCOMYCIN 1,000 MG in DEXTROSE 5%-WATER - 250 ML IVPB ONE (20:27)
[2023-05-26] MEDS ORDERED: ACETAMINOPHEN 1000 MG/100 ML BAG IVPB PRN (22:11)
[2023-05-27] MEDS ORDERED: CYCLOBENZAPRINE HCL 5 MG TABLET PO PRN (00:22)
[2023-05-27] MEDS: SODIUM CHLORIDE 1,000 ML IV SCH (00:31)
[2023-05-27] MEDS ORDERED: MEROPENEM 1 GM VIAL (RESTRICTED TO ID) IVPB ONE (03:32)
[2023-05-27] MEDS: MEROPENEM 500 MG in DEXTROSE 5%-WATER 100 ML IVPB SCH (03:42)
[2023-05-27 08:52] LABS: BASO % 0.5 % (0-2.0); EOS % 1.7 % (0-4.5); HEMATOCRIT 41.2 % (32.4-45.2); HEMOGLOBIN 13.3 GM/dL (10.7-15.3); LYMPH % 17.5 % (8-40); MCH 26.9 pg (25.7-33.7); MCHC 32.3 g/dl (32.0-36.0); MEAN CELL VOLUME 83.5 fl (80-96); MONO % 7.5 % (3.8-10.2); NEUT % 72.8 % (42.8-82.8); PLATELET COUNT 307 10^3/uL (134-434); RBC 4.94 M/mm3 (3.60-5.2); RDW 15.6 % (11.6-15.6); WHITE BLOOD COUNT 7.5 K/mm3 (4.0-10.0)
[2023-05-27 09:22] VITALS: BMI 32.1
[2023-05-27 09:24] LABS: CALCIUM 9.5 mg/dL (8.5-10.1)
[2023-05-27 09:25] LABS: ALBUMIN 3.1 g/dl (3.4-5.0); BLOOD UREA NITROGEN 45.5 mg/dL (7-18); MAGNESIUM 2.1 mg/dL (1.8-2.4)
[2023-05-27 09:27] LABS: PHOSPHOROUS 3.2 mg/dL (2.5-4.9)
[2023-05-27 09:29] LABS: BILIRUBIN,TOTAL 0.9 mg/dL (0.2-1); TOT PROT 6.3 g/dl (6.4-8.2)
[2023-05-27] MEDS: VANCOMYCIN/WATER 1250 MG 1,250 MG/250 ML BAG IVPB SCH (09:55)
[2023-05-27] MEDS: SPIRONOLACTONE 25 MG TABLET PO SCH (09:55)
[2023-05-27] MEDS: APIXABAN 5 MG TABLET PO SCH (09:56)
[2023-05-27] MEDS: MEROPENEM 1 GM in DEXTROSE 5%-WATER 100 ML IVPB SCH (18:30)
[2023-05-27] MEDS: VANCOMYCIN/WATER FOR INJ (PEG) 1,000 MG/200 ML BAG IVPB SCH (20:44)
[2023-05-27] MEDS: ROSUVASTATIN CA 20 MG TABLET PO SCH (21:37)
[2023-05-27] MEDS: metoPROLOL SUCCINATE 25 MG TAB.SR.24H (FP) PO SCH (21:37)
[2023-05-28] MEDS ORDERED: MEROPENEM 500 MG in DEXTROSE 5%-WATER 100 ML IVPB SCH (02:00)
[2023-05-28] MEDS ORDERED: VANCOMYCIN/WATER 1250 MG 1,250 MG/250 ML BAG IVPB SCH (08:00)
[2023-05-29 09:06] LABS: BASO % 0.4 % (0-2.0); EOS % 2.1 % (0-4.5); HEMATOCRIT 42.4 % (32.4-45.2); HEMOGLOBIN 13.5 GM/dL (10.7-15.3); LYMPH % 28.6 % (8-40); MCH 26.7 pg (25.7-33.7); MCHC 31.7 g/dl (32.0-36.0); MEAN CELL VOLUME 84.4 fl (80-96); MEAN PLT VOLUME 9.8 fl (7.5-11.1); MONO % 8.1 % (3.8-10.2); NEUT % 60.8 % (42.8-82.8); PLATELET COUNT 305 10^3/uL (134-434); RBC 5.03 M/mm3 (3.60-5.2); RDW 16.1 % (11.6-15.6); WHITE BLOOD COUNT 8.2 K/mm3 (4.0-10.0)
[2023-05-29 09:47] LABS: POTASSIUM 4.2 mmol/L (3.5-5.1)
[2023-05-29 09:57] LABS: ALBUMIN 3.2 g/dl (3.4-5.0); BLOOD UREA NITROGEN 27.8 mg/dL (7-18); CALCIUM 9.5 mg/dL (8.5-10.1); CREATININE 0.9 mg/dL (0.55-1.3); MAGNESIUM 2.1 mg/dL (1.8-2.4)
[2023-05-29 09:59] LABS: BILIRUBIN,TOTAL 0.7 mg/dL (0.2-1); TOT PROT 6.4 g/dl (6.4-8.2)
[2023-05-29] MEDS: AMINO ACIDS/PROTEIN HYDROLYS 30 ML LIQUID.PKT PO SCH (10:48)
[2023-05-29] MEDS: MULTIVITAMINS THER W-MINERALS COMBO TABLET (FP) PO SCH (10:48)
[2023-05-29] MEDS: LOSARTAN POTASSIUM 25 MG TABLET PO SCH (12:57)
[2023-05-29] MEDS: LOSARTAN POTASSIUM 50 MG TABLET PO SCH (13:01)
[2023-05-29] MEDS: GABAPENTIN 300 MG CAPSULE PO SCH (13:03)
[2023-05-29] MEDS: ACETAMINOPHEN 500 MG TABLET (FP) PO PRN (13:05)
[2023-05-29] MEDS: BENICAR 20 MG PO SCH (15:30)
[2023-05-30] MEDS: PANTOPRAZOLE 40 MG TABLET PO SCH (10:53)
[2023-05-30] MEDS: AMINO ACIDS/PROTEIN HYDROLYS 30 ML LIQUID.PKT PO SCH (17:40)
[2023-05-30] MEDS: AMOX TR/POT CLAV 875MG/125MG TABLETS (FP) PO SCH (17:40)
[2023-05-31 15:23] VITALS: RESP 18
[2023-06-01 15:27] VITALS: BP 129/89; PULSE 90; TEMP 97.9
[2023-06-01] MEDS: LACTOBACILLUS ACIDOPHILUS 1 TABLET PO SCH (16:51)
== END 2023-06-01 18:04 | DRG 603 ==
LOC: JER 15:20 → JERBED 16:08 → J8W 05-27 05:33
PROVIDERS: ADMIT Internal Medicine; ATTEND Nurse Practitioner Family
PROC: 02HV33Z Insertion of Infusion Device into Superior Vena Cava, Percutaneous Approach (ICD-10-PCS; principal; 2023-06-01)
PROC: B548ZZA Ultrasonography of Superior Vena Cava, Guidance (ICD-10-PCS; 2023-06-01)
DX: L03.115 Cellulitis of right lower limb (principal); I48.91 Unspecified atrial fibrillation; Z79.01 Long term (current) use of anticoagulants; I10 Essential (primary) hypertension; E78.5 Hyperlipidemia, unspecified; E86.0 Dehydration; E66.9 Obesity, unspecified; Z68.32 Body mass index [BMI] 32.0-32.9, adult
CPT/HCPCS: 0241U-QW; 36415; 36569; 80053; 83735; 84100; 85025; 85610; 85651; 85730; 86140; 86850; 86900; 86901; 87040; 93005; 93010; 99285-25; G0480; J0131

== ENCOUNTER 2023-12-12 11:42 | Inpatient (IN) | payer OTHER ==
[2023-12-12] MEDS ORDERED: ONDANSETRON 4 MG/2 ML VIAL ONE (12:07)
[2023-12-12] MEDS ORDERED: ACETAMINOPHEN INJECTION 100 ML ONE (12:07)
[2023-12-12] MEDS: ACETAMINOPHEN 1000 MG/100 ML BAG IVPB ONE (12:37)
[2023-12-12] MEDS: SODIUM CHLORIDE 1,000 ML IV ONE ×2 (12:37→15:00)
[2023-12-12] MEDS: ONDANSETRON 4 MG/2 ML VIAL IVPB ONE (12:38)
[2023-12-12 12:47] LABS: INR 1.23 (0.83-1.09); PROTHROMBIN TIME (PATIENT) 13.9 SEC (9.7-13.0)
[2023-12-12 12:48] LABS: HEMATOCRIT 49.5 % (32.4-45.2); HEMOGLOBIN 15.3 G/dL (10.7-15.3); MCH 27.1 pg (25.7-33.7); MCHC 30.8 g/dl (32.0-36.0); MEAN PLT VOLUME 10.5 fl (7.5-11.1); PLATELET COUNT 240.4 10^3/uL (134-434); RBC 5.63 10^6/uL (3.60-5.2); RDW 17.2 % (11.6-15.6)
[2023-12-12 12:59] LABS: ALBUMIN 4.4 g/dl (3.4-5.0); CREATININE 1.2 mg/dl (0.6-1.3); TOT PROT 7.2 g/dl (6.4-8.2)
[2023-12-12 13:03] LABS: PLATELET ESTIMATE ADEQUATE; POTASSIUM 5.9 mmol/L (3.5-5.1)
[2023-12-12] MEDS: morphine CARPU-JECT 2 MG/1 ML DISP.SYRIN IVPUSH ONE (14:01)
[2023-12-12] MEDS ORDERED: morphine SULFATE 4 MG/ML VIAL ONE (15:01)
[2023-12-12] MEDS: morphine CARPU-JECT 4 MG/1 ML DISP.SYRIN IVPUSH ONE (15:08)
[2023-12-12 16:37] LABS: CREATININE 1.1 mg/dl (0.6-1.3); POTASSIUM 4.9 mmol/L (3.5-5.1)
[2023-12-12] MEDS ORDERED: METOCLOPRAMIDE HCL INJECTION 10 MG/2 ML VIAL ONE (17:58)
[2023-12-12] MEDS: METOCLOPRAMIDE HCL INJECTION 10 MG/2 ML VIAL IVPUSH ONE (18:04)
[2023-12-12] MEDS ORDERED: ACETAMINOPHEN 500 MG TABLET (FP) ONE (18:45)
[2023-12-12] MEDS: ACETAMINOPHEN 500 MG TABLET (FP) PO ONE (18:48)
[2023-12-12 19:04] LABS: EPITHELIAL CELLS 0-5 /hpf
[2023-12-12] MEDS ORDERED: FAMOTIDINE 20 MG/50 ML IVPB 20 MG/50 ML MG IVPB ONE (20:18)
[2023-12-12 20:24] LABS: LACTIC ACID 2.1 mmol/L (0.4-2.0)
[2023-12-12] MEDS: FAMOTIDINE 20 MG/50 ML IVPB 20 MG/50 ML MG IVPB ONE (20:25)
[2023-12-12] MEDS: SODIUM CHLORIDE 1,000 ML IV SCH (21:42)
[2023-12-12 22:04] VITALS: BMI 29.5
[2023-12-12 23:37] LABS: LACTIC ACID 2.1 mmol/L (0.4-2.0)
[2023-12-13] MEDS: LORazepam 2 MG/ML SDV VIAL IVPUSH SCH (04:28)
[2023-12-13] MEDS ORDERED: SENNOSIDES 8.6MG TABLET (FP) PO PRN (08:43)
[2023-12-13] MEDS: CHOLECALCIFEROL (VIT D3) 5000 UNITS (125 MCG) CAP PO SCH (09:39)
[2023-12-13] MEDS: PANTOPRAZOLE 40 MG TABLET PO SCH (09:39)
[2023-12-13] MEDS: APIXABAN 5 MG TABLET PO SCH (09:39)
[2023-12-13] MEDS: LOSARTAN POTASSIUM 50 MG TABLET PO SCH (09:39)
[2023-12-13 09:41] LABS: CALCIUM 9.2 mg/dl (8.5-10.1); MAGNESIUM 1.9 mg/dL (1.8-2.4); PHOSPHOROUS 4.2 (2.5-4.9); POTASSIUM 4.3 mmol/L (3.5-5.1)
[2023-12-13] MEDS: FLUTICASONE PROP 0.05% 16 GM NASAL SPRAY NS SCH (09:43)
[2023-12-13] MEDS: VITAMIN B COMPLEX W/C COMBO TABLET (FP) PO SCH (09:44)
[2023-12-13 11:15] LABS: BASO % 0.3 % (0-2.0); EOS % 0.5 % (0-4.5); HEMATOCRIT 43.4 % (32.4-45.2); HEMOGLOBIN 13.8 GM/dL (10.7-15.3); LYMPH % 22.9 % (8-40); MCH 26.8 pg (25.7-33.7); MCHC 31.7 g/dl (32.0-36.0); MEAN CELL VOLUME 84.6 fl (80-96); MEAN PLT VOLUME 9.9 fl (7.5-11.1); MONO % 16.2 % (3.8-10.2); NEUT % 60.1 % (42.8-82.8); PLATELET COUNT 296 10^3/uL (134-434); RBC 5.13 M/mm3 (3.60-5.2); RDW 16.4 % (11.6-15.6); WHITE BLOOD COUNT 5.9 K/mm3 (4.0-10.0)
[2023-12-13] MEDS: ACETAMINOPHEN 1000 MG/100 ML BAG IVPB PRN (16:33)
[2023-12-13] MEDS: MAG HYDROX/AL HYDROX/SIMETH 30 ML UNIT-DOSE CUP PO PRN (16:33)
[2023-12-13] MEDS: ROSUVASTATIN CA 20 MG TABLET PO SCH (21:21)
[2023-12-13] MEDS: metoPROLOL SUCCINATE 25 MG TAB.SR.24H (FP) PO SCH (21:21)
[2023-12-14 09:22] LABS: ALBUMIN 3.3 g/dl (3.4-5.0); BILIRUBIN,TOTAL 1.3 mg/dl (0.2-1); CALCIUM 8.8 mg/dl (8.5-10.1); CREATININE 0.8 mg/dl (0.6-1.3); POTASSIUM 4.1 mmol/L (3.5-5.1); TOT PROT 5.5 g/dl (6.4-8.2)
[2023-12-14 10:03] LABS: BASO % 0.1 % (0-2.0); EOS % 0.8 % (0-4.5); HEMATOCRIT 41.8 % (32.4-45.2); HEMOGLOBIN 13.4 GM/dL (10.7-15.3); LYMPH % 14.7 % (8-40); MCH 26.8 pg (25.7-33.7); MEAN CELL VOLUME 83.7 fl (80-96); MEAN PLT VOLUME 9.4 fl (7.5-11.1); MONO % 13.2 % (3.8-10.2); NEUT % 71.2 % (42.8-82.8); PLATELET COUNT 257 10^3/uL (134-434); RDW 15.9 % (11.6-15.6); WHITE BLOOD COUNT 5.3 K/mm3 (4.0-10.0)
[2023-12-14] MEDS: SPIRONOLACTONE 25 MG TABLET PO SCH (10:12)
[2023-12-14] MEDS: ACETAMINOPHEN 325 MG TABLET (FP) PO PRN (13:13)
[2023-12-14] MEDS ORDERED: ACETAMINOPHEN INJECTION 100 ML ONE (13:49)
[2023-12-14] MEDS: ACETAMINOPHEN 1000 MG/100 ML BAG IVPB ONE (13:55)
[2023-12-15] MEDS: ONDANSETRON 4 MG/2 ML VIAL IVPUSH PRN (10:01)
[2023-12-15] MEDS: SODIUM CHLORIDE 1,000 ML IV SCH ×2 (10:04→13:35)
[2023-12-15] MEDS: SPIRONOLACTONE 25 MG TABLET PO SCH ×2 (11:21→14:09)
[2023-12-15] MEDS ORDERED: SODIUM CHLORIDE 1,000 ML IV SCH (12:00)
[2023-12-15] MEDS: ACETAMINOPHEN 1000 MG/100 ML BAG IVPB PRN (13:33)
[2023-12-15 15:01] LABS: HEMATOCRIT 46.9 % (32.4-45.2); HEMOGLOBIN 14.6 G/dL (10.7-15.3); MCH 27.1 pg (25.7-33.7); MCHC 31.1 g/dl (32.0-36.0); MEAN CELL VOLUME 87.1 fl (80-96); MEAN PLT VOLUME 9.7 fl (7.5-11.1); PLATELET COUNT 234.6 10^3/uL (134-434); RBC 5.38 10^6/uL (3.60-5.2); WHITE BLOOD COUNT 5.6 10^3/uL (4.0-10.8)
[2023-12-15 15:21] LABS: ALBUMIN 3.6 g/dl (3.4-5.0); BILIRUBIN,TOTAL 1.1 mg/dl (0.2-1); CALCIUM 8.8 mg/dl (8.5-10.1); MAGNESIUM 1.9 mg/dL (1.8-2.4); PHOSPHOROUS 3.4 (2.5-4.9); POTASSIUM 4.1 mmol/L (3.5-5.1); TOT PROT 5.8 g/dl (6.4-8.2)
[2023-12-16 08:17] LABS: HEMATOCRIT 44.8 % (32.4-45.2); HEMOGLOBIN 14.1 GM/dL (10.7-15.3); MCH 26.6 pg (25.7-33.7); MCHC 31.5 g/dl (32.0-36.0); MEAN CELL VOLUME 84.3 fl (80-96); MEAN PLT VOLUME 9.8 fl (7.5-11.1); PLATELET COUNT 264 10^3/uL (134-434); RBC 5.31 M/mm3 (3.60-5.2); RDW 15.8 % (11.6-15.6); WHITE BLOOD COUNT 6.1 K/mm3 (4.0-10.0)
[2023-12-16 08:31] LABS: CALCIUM 8.7 mg/dL (8.5-10.1)
[2023-12-16 08:32] LABS: BLOOD UREA NITROGEN 22.6 mg/dL (7-18); MAGNESIUM 2.1 mg/dL (1.8-2.4)
[2023-12-16 08:35] LABS: CREATININE 1.1 mg/dL (0.55-1.3); PHOSPHOROUS 3.8 mg/dL (2.5-4.9)
[2023-12-17] MEDS ORDERED: hydrALAZINE HCL 20 MG/ML VIAL IVPB PRN (08:52)
[2023-12-17] MEDS ORDERED: ENOXAPARIN NA (PORCINE) 80 MG/0.8 ML DISP.SYRIN SQ SCH (10:00)
[2023-12-17] MEDS: METOPROLOL TARTRATE 5 MG/5 ML VIAL IVPB ONE (10:07)
[2023-12-17] MEDS: PANTOPRAZOLE SODIUM 40 MG VIAL IVPUSH SCH (10:16)
[2023-12-17 10:42] LABS: EOS % 0.7 % (0-4.5); HEMATOCRIT 44.5 % (32.4-45.2); LYMPH % 9.3 % (8-40); MCH 26.5 pg (25.7-33.7); MCHC 31.4 g/dl (32.0-36.0); MEAN CELL VOLUME 84.3 fl (80-96); MEAN PLT VOLUME 9.8 fl (7.5-11.1); MONO % 13.8 % (3.8-10.2); NEUT % 76.2 % (42.8-82.8); PLATELET COUNT 249 10^3/uL (134-434); RBC 5.28 M/mm3 (3.60-5.2); WHITE BLOOD COUNT 7.2 K/mm3 (4.0-10.0)
[2023-12-17 11:05] LABS: POTASSIUM 4.2 mmol/L (3.5-5.1)
[2023-12-17 11:08] LABS: CALCIUM 8.8 mg/dL (8.5-10.1)
[2023-12-17 11:09] LABS: BLOOD UREA NITROGEN 22.3 mg/dL (7-18); MAGNESIUM 2.2 mg/dL (1.8-2.4)
[2023-12-17 11:12] LABS: CREATININE 1.1 mg/dL (0.55-1.3)
[2023-12-17 11:14] LABS: BILIRUBIN,TOTAL 0.8 mg/dL (0.2-1); TOT PROT 5.6 g/dl (6.4-8.2)
[2023-12-17] MEDS ORDERED: PROPOFOL 20 ML ONE (11:21)
[2023-12-17] MEDS ORDERED: ROCURONIUM BROMIDE 50 MG/5 ML SYRINGE ONE (11:21)
[2023-12-17] MEDS ORDERED: MIDAZOLAM HCL 2 MG/2 ML SINGLE DOSE VIAL ONE (11:26)
[2023-12-17] MEDS ORDERED: cefOXitin SODIUM 2 GM VIAL (RESTRICTED TO ID) IVPB ONE (11:28)
[2023-12-17] MEDS ORDERED: BUPIVACAINE HCL/PF 0.25% (2.5MG/ML) 10 ML VIAL ONE (11:28)
[2023-12-17] MEDS ORDERED: HEPARIN NA (PORCINE) 5,000 UNITS/ML 1ML VIAL ONE (11:28)
[2023-12-17 15:22] LABS: INR 1.21 (0.83-1.09); PROTHROMBIN TIME (PATIENT) 13.6 SEC (9.7-13.0)
[2023-12-17] MEDS: SODIUM CHLORIDE 1,000 ML IV SCH ×2 (17:11→18:44)
[2023-12-17] MEDS: AMINO ACIDS 4.25%/D5W 1,000 ML IV SCH (17:12)
[2023-12-17] MEDS: ENOXAPARIN NA (PORCINE) 60 MG/0.6 ML DISP.SYRIN SQ SCH (21:17)
[2023-12-18 08:24] LABS: INR 1.23 (0.83-1.09); PROTHROMBIN TIME (PATIENT) 14.1 SEC (9.7-13.0)
[2023-12-18 08:35] LABS: BASO % 0.1 % (0-2.0); EOS % 0.6 % (0-4.5); HEMOGLOBIN 13.6 GM/dL (10.7-15.3); LYMPH % 11.9 % (8-40); MCH 26.9 pg (25.7-33.7); MCHC 32.5 g/dl (32.0-36.0); MEAN CELL VOLUME 82.6 fl (80-96); MEAN PLT VOLUME 9.7 fl (7.5-11.1); MONO % 14.3 % (3.8-10.2); NEUT % 73.1 % (42.8-82.8); PLATELET COUNT 238 10^3/uL (134-434); RBC 5.08 M/mm3 (3.60-5.2); RDW 15.4 % (11.6-15.6); WHITE BLOOD COUNT 6.1 K/mm3 (4.0-10.0)
[2023-12-18] MEDS ORDERED: ACETAMINOPHEN 1000 MG/100 ML BAG IVPB PRN (08:44)
[2023-12-18 09:01] LABS: POTASSIUM 3.5 mmol/L (3.5-5.1)
[2023-12-18 09:06] LABS: ALBUMIN 2.7 g/dl (3.4-5.0); CALCIUM 8.5 mg/dL (8.5-10.1)
[2023-12-18 09:07] LABS: BLOOD UREA NITROGEN 22.9 mg/dL (7-18)
[2023-12-18 09:12] LABS: BILIRUBIN,TOTAL 0.8 mg/dL (0.2-1); TOT PROT 5.1 g/dl (6.4-8.2)
[2023-12-18] MEDS: AMINO ACIDS 4.25%/D5W 1,000 ML IV SCH (10:55)
[2023-12-18] MEDS: SODIUM CHLORIDE 1,000 ML IV SCH (10:55)
[2023-12-18 11:13] VITALS: RESP 18
[2023-12-19] MEDS ORDERED: cefOXitin SODIUM 2 GM VIAL (RESTRICTED TO ID) IVPB ONE (08:52)
[2023-12-19] MEDS ORDERED: BUPIVACAINE HCL/PF 0.25% (2.5MG/ML) 10 ML VIAL ONE (08:52)
[2023-12-19 09:25] LABS: BASO % 0.2 % (0-2.0); EOS % 0.9 % (0-4.5); HEMOGLOBIN 13.3 GM/dL (10.7-15.3); LYMPH % 14.4 % (8-40); MCH 26.5 pg (25.7-33.7); MCHC 31.6 g/dl (32.0-36.0); MEAN CELL VOLUME 84.1 fl (80-96); MEAN PLT VOLUME 9.4 fl (7.5-11.1); NEUT % 70.5 % (42.8-82.8); PLATELET COUNT 234 10^3/uL (134-434); RBC 4.99 M/mm3 (3.60-5.2); RDW 15.5 % (11.6-15.6); WHITE BLOOD COUNT 6.5 K/mm3 (4.0-10.0)
[2023-12-19 09:27] LABS: INR 1.18 (0.83-1.09); PROTHROMBIN TIME (PATIENT) 13.3 SEC (9.7-13.0)
[2023-12-19] MEDS ORDERED: PROMETHAZINE HCL 25 MG/1 ML VIAL IVPB PRN ×2 (10:35→13:11)
[2023-12-19] MEDS ORDERED: ONDANSETRON 4 MG/2 ML VIAL IVPUSH PRN ×3 (10:35→13:11)
[2023-12-19] MEDS ORDERED: ROCURONIUM BROMIDE 50 MG/5 ML SYRINGE ONE (10:39)
[2023-12-19] MEDS ORDERED: MIDAZOLAM HCL 2 MG/2 ML SINGLE DOSE VIAL ONE (10:39)
[2023-12-19] MEDS ORDERED: PROPOFOL 20 ML ONE (10:39)
[2023-12-19] MEDS ORDERED: LIDOCAINE HCL/PF 2% SDV 5ML VIAL ONE (10:40)
[2023-12-19] MEDS ORDERED: SODIUM CHLORIDE 0.9% P/F 10 ML VIAL IJ ONE (10:40)
[2023-12-19] MEDS: cefTRIAXone SODIUM 1 GM VIAL IVPB ONE (10:50)
[2023-12-19] MEDS ORDERED: DEXAMETHASONE SOD PHOSPHATE 4 MG/1 ML VIAL ONE (11:07)
[2023-12-19] MEDS ORDERED: ONDANSETRON 4 MG/2 ML VIAL ONE (11:07)
[2023-12-19] MEDS: BUPIVACAINE HCL/PF 2.5 MG/ML - 30 ML VIAL IJ ONE ×2 (11:35)
[2023-12-19] MEDS ORDERED: SUGAMMADEX SODIUM 200 MG/2 ML VIAL ONE ×2 (12:15→12:16)
[2023-12-19] MEDS ORDERED: METOPROLOL TARTRATE 5 MG/5 ML VIAL ONE (12:28)
[2023-12-19 12:40] LABS: POTASSIUM 3.3 mmol/L (3.5-5.1)
[2023-12-19] MEDS ORDERED: traMADol HCL 50 MG TABLET PO PRN (12:41)
[2023-12-19 12:49] LABS: ALBUMIN 2.6 g/dl (3.4-5.0); BLOOD UREA NITROGEN 22.6 mg/dL (7-18); CALCIUM 8.1 mg/dL (8.5-10.1); MAGNESIUM 1.8 mg/dL (1.8-2.4)
[2023-12-19 12:52] LABS: CREATININE 0.9 mg/dL (0.55-1.3)
[2023-12-19 12:54] LABS: BILIRUBIN,TOTAL 0.8 mg/dL (0.2-1); TOT PROT 5.1 g/dl (6.4-8.2)
[2023-12-19] MEDS ORDERED: ACETAMINOPHEN 1000 MG/100 ML BAG IVPB SCH (13:00)
[2023-12-19] MEDS ORDERED: hydrALAZINE HCL 20 MG/ML VIAL IVPB PRN (13:11)
[2023-12-19] MEDS: ACETAMINOPHEN 1000 MG/100 ML BAG IVPB SCH (13:55)
[2023-12-19] MEDS: SODIUM CHLORIDE 1,000 ML IV SCH (14:05)
[2023-12-19] MEDS: ACETAMINOPHEN 500 MG TABLET (FP) PO SCH (15:39)
[2023-12-19] MEDS: LACTATED RINGERS SOLUTION 1,000 ML IV SCH (15:43)
[2023-12-19] MEDS: ROSUVASTATIN CA 20 MG TABLET PO SCH (21:36)
[2023-12-19] MEDS: metoPROLOL SUCCINATE 25 MG TAB.SR.24H (FP) PO SCH (21:36)
[2023-12-20 08:51] LABS: HEMATOCRIT 41.3 % (32.4-45.2); HEMOGLOBIN 13.4 GM/dL (10.7-15.3); MCH 27.1 pg (25.7-33.7); MCHC 32.4 g/dl (32.0-36.0); MEAN CELL VOLUME 83.6 fl (80-96); MEAN PLT VOLUME 9.9 fl (7.5-11.1); PLATELET COUNT 251 10^3/uL (134-434); RBC 4.94 M/mm3 (3.60-5.2); RDW 15.5 % (11.6-15.6)
[2023-12-20 09:05] LABS: INR 1.04 (0.83-1.09)
[2023-12-20 09:22] LABS: POTASSIUM 3.5 mmol/L (3.5-5.1)
[2023-12-20 09:28] LABS: BLOOD UREA NITROGEN 19.6 mg/dL (7-18)
[2023-12-20 09:32] LABS: CALCIUM 8.4 mg/dL (8.5-10.1)
[2023-12-20 09:33] LABS: ALBUMIN 2.9 g/dl (3.4-5.0); MAGNESIUM 1.6 mg/dL (1.8-2.4)
[2023-12-20 09:36] LABS: CREATININE 1.2 mg/dL (0.55-1.3)
[2023-12-20 09:38] LABS: BILIRUBIN,TOTAL 0.6 mg/dL (0.2-1); TOT PROT 5.5 g/dl (6.4-8.2)
[2023-12-20] MEDS ORDERED: LOSARTAN POTASSIUM 50 MG TABLET PO SCH (10:00)
[2023-12-20] MEDS ORDERED: PANTOPRAZOLE SODIUM 40 MG VIAL IVPUSH SCH (10:00)
[2023-12-20] MEDS: APIXABAN 5 MG TABLET PO SCH (10:30)
[2023-12-20] MEDS: SPIRONOLACTONE 25 MG TABLET PO SCH (10:30)
[2023-12-20] MEDS: MAGNESIUM OXIDE 400 MG TABLET (FP) PO ONE (10:31)
[2023-12-20] MEDS: PANTOPRAZOLE 40 MG TABLET PO SCH (10:31)
[2023-12-20] MEDS: VITAMIN B COMPLEX W/C COMBO TABLET (FP) PO SCH (10:35)
[2023-12-20] MEDS: CHOLECALCIFEROL (VIT D3) 5000 UNITS (125 MCG) CAP PO SCH (10:35)
[2023-12-20] MEDS: ACETAMINOPHEN 500 MG TABLET (FP) PO SCH (11:33)
[2023-12-20] MEDS: AMINO ACIDS 4.25%/D5W 1,000 ML IV SCH (11:34)
[2023-12-20 12:15] VITALS: BP 107/72; PULSE 76; TEMP 97.8
[2023-12-20] MEDS: FLUTICASONE PROP 0.05% 16 GM NASAL SPRAY NS SCH (13:39)
== END 2023-12-20 13:41 | disposition home or self-care (01) | DRG 337 ==
LOC: FER 11:42 → FM/S 19:09 → OBSVTOIN 12-15 07:26 → J8W 12-16 01:30
PROVIDERS: ADMIT Internal Medicine; ATTEND Nurse Practitioner Family
PROC: 0DN84ZZ Release Small Intestine, Percutaneous Endoscopic Approach (ICD-10-PCS; principal; 2023-12-19 11:00)
DX: K56.609 Unspecified intestinal obstruction, unspecified as to partial versus complete obstruction (principal); M06.9 Rheumatoid arthritis, unspecified; I10 Essential (primary) hypertension; E78.5 Hyperlipidemia, unspecified; K52.9 Noninfective gastroenteritis and colitis, unspecified; I48.91 Unspecified atrial fibrillation
CPT/HCPCS: 36415; 74018-TC-FY; 74019-TC-FY; 74174-TC; 74177-TC; 74240-TC-FY; 80048; 80053; 81003; 81015; 83605; 83690; 83735; 84100; 84484; 85025; 85027; 85610; 85651; 85730; 86140; 86850; 86900; 86901; 87045; 87046; 93005; 94010; 94760; 97116-GP; 97162-GP; 99285-25; G0378; J0131; J1644; Q9967